=== PATIENT | male | born 1985 | race Caucasian/White ===

== ENCOUNTER 2025-04-02 09:59 | Emergency (ER) | payer OTHER ==
[~2025-04-02] VITALS: Ht 180.3 cm; Wt 104.5 kg
[2025-04-02 10:07] VITALS: TEMP 98.6
[2025-04-02] MEDS: NITROGLYCERIN 2% (1 GM=INCH) OINTMENT PACKET TP ONE (11:37)
[2025-04-02] MEDS: ASPIRIN 325 MG TABLET PO ONE (11:38)
[2025-04-02 11:40] LABS: PLATELET COUNT (AUTO) 203 K/uL (150-450); RED BLOOD CELL COUNT(AUTO) 4.76 MIL/uL (4.50-5.90); RED CELL DISTRIBUTION WIDTH 13.8 % (11.5-14.5); WHITE BLOOD COUNT (AUTO) 8.9 K/uL (4.5-11.0)
[2025-04-02 11:47] LABS: CALCIUM, TOTAL 8.6 mg/dL (8.8-10.5); CREATININE 0.91 mg/dL (0.60-1.30); GLOMERULAR FILTR. RATE CALC > 60 mL/min (>60); GLUCOSE,RANDOM 111 mg/dL (70-110); SODIUM SERUM 138 mmol/L (136-145); UREA NITROGEN, BLOOD 16 mg/dL (7-18)
[2025-04-02 11:58] LABS: TROPONIN I-HIGH SENSITIVITY 4 ng/L (<76)
[2025-04-02 13:00] VITALS: BP 134/78; PULSE 76; RESP 16; O2SAT 96
[2025-04-02] MEDS: ONDANSETRON HCL 4 MG/2 ML VIAL IVP ONE (13:40)
== END 2025-04-02 14:51 | disposition short-term general hospital (02) ==
LOC: EMS 10:03
DX: R07.89 Other chest pain (principal); R42 Dizziness and giddiness; R53.1 Weakness; R05.9 Cough, unspecified
CPT/HCPCS: 99285; 96374; 71045; 96375; 80048; 84484; 85025; 36415; 93005; J1171; J2405